=== PATIENT | female | born 2000 | race Caucasian/White ===

== ENCOUNTER 2018-04-06 13:02 | Emergency (ER) | payer BC ==
[~2018-04-06] VITALS: Ht 167.6 cm; Wt 117.9 kg
[~2018-04-06 13:02] MED LIST: ALBUTEROL2.5 MG/32 IH; PROTANDIN; ROBITUSSIN DM118 ML PO; ZPAK PO
[2018-04-06 13:55] VITALS: BP 158/99
== END 2018-04-06 13:57 | disposition left against medical advice (07) ==
LOC: M.ERS 13:02
DX: Z53.21 Procedure and treatment not carried out due to patient leaving prior to being seen by health care provider (principal)

== ENCOUNTER 2021-07-26 18:17 | Emergency (ER) | payer OTHER, MEDICAID ==
[~2021-07-26] VITALS: Ht 157.5 cm; Wt 122.5 kg
[2021-07-26] MEDS ORDERED: CELEXA 20 MG TA20 MG PO (18:38)
[2021-07-26] MEDS ORDERED: BUSPIRONE HCL10 MG PO (18:38)
[2021-07-26] MEDS ORDERED: AMOXIL 875 MG875 M1 PO (20:48)
[2021-07-26] MEDS ORDERED: IBUPROFEN 800800 M1 PO (20:48)
[2021-07-26 20:57] VITALS: BP 134/95
== END 2021-07-26 20:58 | disposition home or self-care (01) ==
LOC: M.ERS 18:17
DX: J02.0 Streptococcal pharyngitis (principal); Z20.822 Contact with and (suspected) exposure to COVID-19; J45.909 Unspecified asthma, uncomplicated; Z96.22 Myringotomy tube(s) status; Z79.899 Other long term (current) drug therapy